=== PATIENT | male | born 1975 | race American Indian/Alaskan Native ===

== ENCOUNTER 2017-08-17 06:14 | Emergency (ER) | payer OTHER ==
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
[2017-08-17] MEDS ORDERED: Sodium Chloride 0.9% 1,000 ML IV ONE (06:50)
== END 2017-08-17 08:57 | disposition home or self-care (01) ==
LOC: FB.ED 06:14
DX: E86.0 Dehydration (principal); E11.9 Type 2 diabetes mellitus without complications; F17.210 Nicotine dependence, cigarettes, uncomplicated; Y99.0 Civilian activity done for income or pay; Z79.84 Long term (current) use of oral hypoglycemic drugs
CPT/HCPCS: 36415; 80053; 81001; 84443; 84484; 85025; 96360; 99283; J7030